=== PATIENT | female | born 1955 | race Caucasian/White ===

== ENCOUNTER 2018-11-19 00:35 | Outpatient (CLI) | payer BC, SELFPAY ==
--- NOTE | 2018-11-19 09:00 | DI.MAMMO_ITS ---
SYMPTOM/DIAGNOSIS: SCREENING, Z12.31 MAMMOGRAMS: Mammograms were interpreted according to the usual protocol including computer analysis with CAD system, tomosynthesis and C view imaging. The breasts are heterogeneously dense. Note is again made of a rim calcified nodule of the central portion of the right breast, unchanged or smaller in comparison with previous examinations including 12/2016. No new mass or clumped microcalcification is seen. CONCLUSION: No specific evidence of malignancy at this time. Routine screening examinations are suggested at yearly intervals due to the family history of breast carcinoma. Category 1. Breast density, category C. MQSA ASSESSMENT OF FINDINGS: Negative. Category 1. Patient will receive a letter notifying them of these results. Bi-RADS category C. The breasts are heterogeneously dense, which may obscure small masses.
== END 2018-11-19 00:55 ==
PROVIDERS: PCP Nurse Practitioner Family; Visit Provider Family Medicine
DX: Z12.31 Encounter for screening mammogram for malignant neoplasm of breast (principal); Z80.3 Family history of malignant neoplasm of breast
CPT/HCPCS: 77063; 77067

== ENCOUNTER 2019-08-20 02:10 | Outpatient (CLI) | payer BC, SELFPAY ==
--- NOTE | 2019-08-20 | DI.RAD_ITS ---
EXAM: XR LUMBAR SPINE COMPLETE INDICATION: LOW BACK PAIN M54.5. COMPARISON: CHEST 2 VIEWS PA,LAT from 12/19/2016 TECHNIQUE: 2D digital imaging was performed. FINDINGS: Vertebral bodies are well maintained in height. There is severe narrowing of the L5-S1 disc space. There is mild L5-S1 spondylolisthesis but no visible spondylolysis. There is no scoliosis. There ar e facet degenerative changes at L4-5 and L5-S1. There are small endplate osteophytes. Surgical clip s are noted in the right upper quadrant. IMPRESSION: Degenerative disc changes and mild listhesis at L5-S1. DATA REPOSITORY: RADIATION DOSE DELIVERED:
== END 2019-08-20 02:30 ==
PROVIDERS: PCP Nurse Practitioner Family; Visit Provider Family Medicine
DX: M54.5 Low back pain (principal); M51.37 Other intervertebral disc degeneration, lumbosacral region; M43.17 Spondylolisthesis, lumbosacral region
CPT/HCPCS: 72110

== ENCOUNTER 2019-08-20 08:45 | Outpatient (REF) | payer BC, SELFPAY ==
[2019-08-20 13:27] LABS: Abs Immature Grans 0.01 k/cumm (0.0-0.09); Absolute Basophil Count 0.04 k/cumm (0.0-0.2); Absolute Eosinophil Count 0.34 k/cumm (0.0-0.7); Absolute Lymphocyte Count 1.53 k/cumm (1.2-3.4); Absolute Monocyte Count 0.43 k/cumm (0.11-0.7); Absolute Neutrophil Count 2.94 k/cumm (1.2-6.7); Basophils % 0.8; Eosinophils % 6.4; HCT 44.6 % (36.0-46.0); HGB 14.9 g/dL (12.0-15.5); Immature Grans % 0.2 %; Lymphocytes % 28.9; Mean Corp. HGB Concentration 33.4 g/dL (32.0-36.0); Mean Corpuscular Hemoglobin 30.5 pg (27.0-33.0); Mean Corpuscular Volume 91.4 fL (80-95); Mean Platelet Volume 10.7 fL (8.0-11.0); Monocytes % 8.1; Neutrophils % 55.6; Platelet Count 222 x1000/uL (130-400); RBC 4.88 m/cumm (4.00-5.20); RBC Distribution Width 13.5 % (11.7-14.6); White Blood Cell Count 5.29 k/cumm (4.4-10.8)
[2019-08-20 13:33] LABS: ALT 30 U/L (14-59); AST 21 U/L (15-37); Albumin 4.1 g/dL (3.4-5.0); Alkaline Phosphatase 108 U/L (46-116); Anion Gap 10.7 mmol/L (3-11); BUN 27 mg/dL (7-18); Bilirubin, Total 0.6 mg/dL (0.2-1.0); CO2 26.3 mmol/L (21.0-32.0); CREATININE 0.71 mg/dL (0.55-1.02); Calcium 9.6 mg/dL (8.5-10.1); Calculated LDL 156 mg/dL (<100); Chloride 102 mmol/L (98-107); Cholesterol 259 mg/dL (<200); Glucose 91 mg/dL (74-106); HDL Cholesterol 72 mg/dL (40-60); Potassium 4.2 mmol/L (3.5-5.1); Sodium 139 mmol/L (136-145); Total Protein 7.2 g/dL (6.4-8.2); Triglyceride 155 mg/dL (<150)
== END 2019-08-20 09:05 ==
LOC: NCHCN 08:45
PROVIDERS: PCP Nurse Practitioner Family; Visit Provider Family Medicine
DX: Z00.00 Encounter for general adult medical examination without abnormal findings (principal); E78.5 Hyperlipidemia, unspecified
CPT/HCPCS: 80053; 80061; 85025

== ENCOUNTER 2020-03-26 00:14 | Outpatient (CLI) | payer MEDICARE, OTHER, SELFPAY ==
--- NOTE | 2020-03-26 13:50 | DI.DEXA_ITS ---
EXAM: XR DEXA BONE DENSITY W/WO ENOCH CLINICAL HISTORY: SCREENING FOR OSTEOPOROSIS, Z78.0 TECHNIQUE: COMPARISON: CR XR LUMBAR SPINE COMPLETE from 08/20/2019 FINDINGS: DEXA scan was performed according to the usual protocol. Please see the accompanying data sheets. Findings for left hip scanning are T-score -0.6 with left femoral neck T-score -1.5. Findings for lumbar spine scanning are T-score -1.8. Findings for left forearm scanning are T-score -1.9 IMPRESSION: Findings consistent with osteopenia according to the WHO criteria. The lateral vertebral scanogram s hows no evidence of a vertebral compression fracture. RADIATION DOSE DELIVERED: Total DLP
== END 2020-03-26 00:34 ==
PROVIDERS: PCP Nurse Practitioner Family; Visit Provider Family Medicine
DX: Z78.0 Asymptomatic menopausal state (principal); M85.89 Other specified disorders of bone density and structure, multiple sites
CPT/HCPCS: 77080

== ENCOUNTER 2020-04-21 03:26 | Outpatient (CLI) | payer MEDICARE, OTHER, SELFPAY ==
[2020-04-23 04:36] LABS: Vitamin D 25 Total 23.1 ng/ml (30-100)
== END 2020-04-21 03:46 ==
PROVIDERS: PCP Nurse Practitioner Family; Visit Provider Physical Medicine & Rehabilitation
DX: E55.9 Vitamin D deficiency, unspecified (principal); M89.9 Disorder of bone, unspecified
CPT/HCPCS: 36415; 82306

== ENCOUNTER 2020-06-25 02:43 | Outpatient (CLI) | payer MEDICARE, OTHER, SELFPAY ==
[2020-06-25 16:48] LABS: Vitamin D 25 Total 33.9 ng/ml (30-100)
== END 2020-06-25 03:03 ==
PROVIDERS: PCP Family Medicine; Visit Provider Physical Medicine & Rehabilitation
DX: E55.9 Vitamin D deficiency, unspecified (principal); M89.8X8 Other specified disorders of bone, other site
CPT/HCPCS: 36415; 82306

== ENCOUNTER 2021-08-02 01:39 | Outpatient (CLI) | payer MEDICARE, OTHER, SELFPAY ==
[2021-08-02 12:24] LABS: Abs Immature Grans 0.02 10^3/uL (0.0-0.06); Absolute Basophil Count 0.05 10^3/uL (0.0-0.2); Absolute Eosinophil Count 0.17 10^3/uL (0.0-0.7); Absolute Lymphocyte Count 1.58 10^3/uL (1.2-3.4); Absolute Monocyte Count 0.48 10^3/uL (0.1-0.8); Absolute Neutrophil Count 4.26 10^3/uL (1.2-6.7); Basophils % 0.8; Eosinophils % 2.6; HCT 42.7 % (36.0-46.0); HGB 13.8 g/dL (11.2-15.7); Immature Grans % 0.3; Lymphocytes % 24.1; MCH 29.3 pg (27.0-33.0); MCHC 32.3 % (32.0-36.0); MCV 90.7 fL (80-95); MPV 10.3 fL (8.0-11.0); Monocytes % 7.3; Neutrophils % 64.9; Nucleated RBC 0 %; Platelet Count 199 10^3/uL (130-400); RBC 4.71 10^6/uL (3.93-5.22); RDW 12.7 % (11.7-14.6); RDW-SD 41.9 fL; WBC 6.56 10^3/uL (4.4-10.8)
[2021-08-02 13:52] LABS: Iron 77 ug/dL (50-170); Total Iron Binding Capacity 263 ug/dL (250-450)
[2021-08-02 14:10] LABS: Vitamin D 25 Total 50.8 ng/mL (30-100)
[2021-08-02 14:15] LABS: ALT 28 U/L (14-59); AST 21 U/L (15-37); Albumin 3.9 g/dL (3.4-5.0); Alkaline Phosphatase 105 U/L (46-116); BUN 22 mg/dL (7-18); Bilirubin, Total 0.3 mg/dL (0.2-1.0); Calcium 9.3 mg/dL (8.5-10.1); Chloride 102 mmol/L (98-107); Estimated GFR 55.47 (mL/min/1.73m2); Glucose 101 mg/dL (74-106); Magnesium 2.3 mg/dL (1.8-2.4); Potassium 3.9 mmol/L (3.5-5.1); Sodium 140 mmol/L (136-145); TSH 2.06 uIU/mL (0.36-3.74); Total Protein 7.1 g/dL (6.4-8.2); Vitamin B12 558 pg/mL (193-986)
[2021-08-02 14:18] LABS: Folate > 20.0 ng/mL (8.6-20.0)
[2021-08-02 23:04] LABS: Ferritin 47 ng/mL (10-291)
== END 2021-08-02 01:40 | disposition home or self-care (01) ==
LOC: LBO 01:39
PROVIDERS: PCP Family Medicine; Visit Provider Physical Medicine & Rehabilitation
DX: R53.83 Other fatigue; E55.9 Vitamin D deficiency, unspecified; E53.8 Deficiency of other specified B group vitamins; E61.1 Iron deficiency; M89.8X8 Other specified disorders of bone, other site
CPT/HCPCS: 36415; 80053; 82306; 82607; 82728; 82746; 83540; 83550; 83735; 84443; 85025

== ENCOUNTER → 2022-01-17 00:51 | Outpatient (CLI) | payer MEDICARE, OTHER, SELFPAY ==
--- NOTE | 2022-01-17 08:41 | DI.MAMMO_ITS ---
Exam(s) MAMMO SCREENING EXAM: MAMMO SCREENING CLINICAL HISTORY: SCREENING, Z12.31 TECHNIQUE: Mammograms were interpreted according to the usual protocol including computer analysis w [facility] CAD system, tomosynthesis and C-view imaging. COMPARISON: FINDINGS: The breasts are heterogeneously dense. There are multiple benign-appearing fairly stable calcificati ons seen bilaterally. There is no new mass or clumped microcalcification of either breast. Comparis on prior examinations including November 2018 shows no worrisome change. IMPRESSION: No specific evidence of malignancy at this time. Routine screening examinations are suggested at yea rly intervals due to the family history of breast carcinoma. BI-RADS Category 1 - Negative Breast Density - Category C - Heterogeneously dense
== END ==
PROVIDERS: PCP Family Medicine; Visit Provider Family Medicine
DX: Z12.31 Encounter for screening mammogram for malignant neoplasm of breast (principal); Z80.3 Family history of malignant neoplasm of breast
CPT/HCPCS: 77063; 77067

== ENCOUNTER → 2022-02-25 00:20 | Outpatient (CLI) | payer MEDICARE, OTHER, SELFPAY ==
--- NOTE | 2022-02-25 | DI.CT_ITS ---
Exam(s) CT SINUS WO EXAM: CT SINUS WO CLINICAL HISTORY: CHRONIC SINUSITIS J32.0 CHRONIC FRONTAL SINUSITIS J32.1. Evaluate for sinusitis. TECHNIQUE: Imaging Protocol: Axial computed tomography images with coronal and sagittal reformatted images were created and reviewed. COMPARISON: No exams were available for comparison FINDINGS: AXIAL IMAGES: Frontal sinuses: Normally aerated. Ethmoid air cells: Normally aerated. Maxillary sinuses: There is a 2.2 x 2.1 cm mucous retention cyst or polyp in the floor of the left ma xillary sinus. There is a small mucous retention cyst or polyp in the right maxillary sinus. There is mild mucosal thickening in the floor the right maxillary sinus. Sphenoid sinus: Normally aerated. Ostiomeatal complexes: Patent. Osseous nasal septum: Midline. There is a small spur arising from the nasal septum and projecting int o the right nasal cavity. Visualized regional soft tissues: No acute findings. Orbits: Unremarkable. Bones: Unremarkable. Mastoid Air Cells: Normally aerated. IMPRESSION: 1. Mucous retention cysts or polyps in both maxillary sinuses. There is a 2.2 x 2.1 cm cyst/polyp in the left maxillary sinus. 2. Mild mucosal thickening in the right maxillary sinus. RADIATION DOSE DELIVERED: 165.2mGy.cm Total DLP 165.2mGy.cm Total DLP DATA REPOSITORY: All CT scans at this facility are submitted to the National Radiology Data Registry (NRDR) Dose Index Registry (DIR) with the [employer] (ACR). RADIATION OPTIMIZATION: All CT scans at this facility use at least one of these dose optimization te chniques: automated exposure control; mA and/or kV adjustment per patient size (includes targeted exa ms where dose is matched to clinical indication); or iterative reconstruction.
--- OUTSIDE RECORDS SUMMARY | 2022-02-25 00:22 | XMS_ITS | Encounter Summary ---
:1955 Author Organization [facility] Address [address] [place] [address] Care Team Providers Name Role Phone Igor Yu H MATTHEW Primary Care Provider [phone] Encounter Details Date Type Department Care Team Description 01/02/2017 Results Only [facility] Alondra Avitia, [facility] [phone] [facility] [facility] [place] [address] (Wo rk) Social History Tobacco Use Types Packs/Day Years Used Date Never Assessed Sex Assigned at Date Recorded Not on file documented as of this encounter Plan of Treatment Not on filedocumented as of this encounter Procedures Procedure Name Priority Date/Time Associated Diagnosis Comme nts PAP TEST- RESULT Routine 01/02/2017 0:00 EDT Resu lts for this ONLY procedure are i n the results section. documented in this encounter Results PAP TEST- RESULT ONLY (01/02/2017 0:00 EDT) Pathology Report: CYTOPATHOLOGY REPORT [facility] Reports generated via electronic interface contain rajesh ginal data; SERVICES however they are lacking the format of the original re port. Caution should be taken when reading/interpreting unfo rmatted reports. Name: ? GAVI MURRELL ? Accession #: ? [id number] ? : ? 1955 (Age: [age]) ??F ?Collect Date: ? 01/02/2017 ? Location: ? [facility] ? Receive Date: ? 01/04/20 17 ? Provider: ALONDRA FREEMAN NEWS REEL CAMERAMAN Copy to: YU SONG APRN ? Final Report SPECIMEN ADEQUACY ? Satisfactory for Evaluation - transformation zone component present GENERAL CATEGORIZATION ? Negative for Intraepithelial Lesion or Malignan cy ?? Last Menstrual Period: 2000 Specimen/Source: ??Pap Test, Cervix, ThinPrep Imaging System with manual evaluation Document reviewed and electronically signed by: ? Cheryl Ferrer, CT(ASCP) ? Report ??Date: 01/11/2017 14:43 HPV with Pap Test ? Date Ordered: ? 01/11/2017 ? Status: ?? Signed Out ?Date Complete: ? 01/12/2017 ? By: ??Sy stem Interface ? Date Reported: ? 01/12/2017 ? Interpretation RESULT: Negative for HPV. No E6 or E7 mRNA is detected from HPV types 16,18,31,3 3,35, 39,45,51,52,56,58,59,66, and 68 by safety deposit boxes custodian media vira amplification. Comments Document reviewed and electronically signed by: ? System Interface ? Report date: 01/12/2017 By the signature above, the attending physician certif ies that he/she has personally conducted a gross and/or microscopic examin ation of the described specimens and rendered or confirmed the above diagnosi s. End of Report Specimen Performing Organization Address City/State/ZIP Code Phon e Number [facility] [address] [place] [address] SERVICES documented in this encounter Visit Diagnoses Not on filedocumented in this encounter Care Teams Manager Marketing Communication Relationship Specialty Start Date End Date Yu Song APRN PCP - General 10/01/15 [address] [place] [address] documented as of this encounter
--- OUTSIDE RECORDS SUMMARY | 2022-02-25 00:22 | XMS_ITS | Encounter Summary ---
:1955 Author Organization [facility] [place] [address] Care Team Providers Name Role Phone Brittni Costa APRN Primary Care Provider [phone] Encounter Details Date Type Department Care Team Description 02/02/2012 Orders Only Radiology and Cardiology Apd Conversion, Results Results Provider, [address] [place] [phone] Social History Tobacco Use Types Packs/Day Years Used Date Never Assessed Sex Assigned at Date Recorded Not on file documented as of this encounter Plan of Treatment Not on filedocumented as of this encounter Procedures Procedure Name Priority Date/Time Associated Diagnosis Comme nts T3, FREE Routine 02/02/2012 1:06 PM Results f or this EDT procedure are i n the results section . TSH Routine 02/02/2012 1:06 PM Results f or this EDT procedure are i n the results section . T4, FREE Routine 02/02/2012 1:06 PM Results f or this EDT procedure are i n the results section . IRON Routine 02/02/2012 1:06 PM Results f or this EDT procedure are i n the results section . FERRITIN Routine 02/02/2012 1:06 PM Results f or this EDT procedure are i n the results section . documented in this encounter Results (ABNORMAL) T3, free (02/02/2012 1:06 PM EDT) P athologist Signature T3, Free 2.33 2.18 - ANITA MOTA DAY (External 3.98 pg/mL CONVERSION Lab) Specimen (Source) Anatomical Collection Method Collection Time Re ceived Time Location / / Volume Laterality 02/02/2012 1:06 PM EDT Results Provider Apd Conversion CHEMISTRY ORDERABLE S Performing Organization Address City/State/ZIP Code Phon e Number [facility] CONVERSION [address] [place], [place] [address] [facility] [place] CONVERSION (ABNORMAL) Ferritin (02/02/2012 1:06 PM EDT) P athologist Signature Ferritin 118 8 - 388 ANITA MOTA DAY (External ng/mL CONVERSION Lab) Specimen (Source) Anatomical Collection Method Collection Time Re ceived Time Location / / Volume Laterality 02/02/2012 1:06 PM EDT Results Provider Apd Conversion CHEMISTRY ORDERABLE S Performing Organization Address City/[facility]/ZIP Code Phon e Number [facility] CONVERSION [address] [place], [place] [address] ANITA [place] DAY CONVERSION (ABNORMAL) TSH (02/02/2012 1:06 PM EDT) P athologist Signature TSH 1.530 0.358 - ANITA MOTA DAY (External 3.74 CONVERSION Lab) uIU/mL Specimen (Source) Anatomical Collection Method Collection Time Re ceived Time Location / / Volume Laterality 02/02/2012 1:06 PM EDT Results Provider Apd Conversion CHEMISTRY ORDERABLE S Performing Organization Address City/State/ZIP Code Phon e Number [facility] CONVERSION [address] [place], [place] [address] [facility] [facility] [place] CONVERSION (ABNORMAL) T4, free (02/02/2012 1:06 PM EDT) P athologist Signature Free T4 1.1 0.76 - ANITA MOTA DAY (External 1.46 ng/dL CONVERSION Lab) Specimen (Source) Anatomical Collection Method Collection Time Re ceived Time Location / / Volume Laterality 02/02/2012 1:06 PM EDT Results Provider Apd Conversion CHEMISTRY ORDERABLE S Performing Organization Address City/[facility]/ZIP Code Phon e Number [facility] CONVERSION [address] [place], [place] [address] ANITA MOTA CONVERSION (ABNORMAL) Iron (02/02/2012 1:06 PM EDT) P athologist Signature Iron 80 50 - 170 ANITA HERNANDEZ (External ug/dL CONVERSION Lab) Specimen (Source) Anatomical Collection Method Collection Time Re ceived Time Location / / Volume Laterality 02/02/2012 1:06 PM EDT Results Provider Apd Conversion MD CHEMISTRY ORDERABLE S Performing Organization Address City/State/ZIP Code Phon e Number ANITAJENNIFER MOTA CONVERSION [address] [place], [place] [address] ANITAJENNIFER HERNANDEZ CONVERSION documented in this encounter Visit Diagnoses Not on filedocumented in this encounter Care Teams Microfilm Camera Operator Relationship Specialty Start Date End Date Brittni Costa APRN PCP - General Family Medicine 01/09/17 [address] [place] [address] documented as of this encounter
--- OUTSIDE RECORDS SUMMARY | 2022-02-25 00:22 | XMS_ITS | Encounter Summary ---
:1955 Author Organization [facility] Address [address] [place] [address] Care Team Providers Name Role Phone Unavailable Primary Care Provider Unavailable Encounter Details Date Type Department Care Team Description 09/17/2008 Before PRISM Converted [facility] - Melvi Davis, Visit (Maple) Maple conversion [facility]PRESSURIST [address] [place] [address] Social History Tobacco Use Types Packs/Day Years Used Date Never Assessed Sex Assigned at Date Recorded Not on file documented as of this encounter Plan of Treatment Not on filedocumented as of this encounter Procedures Procedure Name Priority Date/Time Associated Comments Diagnosis HPV DETECTION, HIGH Routine 09/17/2008 9:30 Resul ts for this RISK TYPES EDT procedure are i n the results section. CYTOPATHOLOGY Routine 09/17/2008 0:00 Results for this EDT procedure are i n the results section. documented in this encounter Results HUMAN PAPILLOMA VIRUS DNA TEST (09/17/2008 9:30 EDT) Specimen Description Cervix, ThinPrep [facility] vial Result Negative for HPV [facility] types 16, 18, 31, 33, 35, 39, 45, 51, 52, 56, 58, 59, and 68. Report Status Final [facility] 09/24/2008 Specimen Performing Organization Address City/State/ZIP Code Phon e Number [facility] [address] [place] [address] SERVICES [facility] [address] [place] [address] CYTOPATHOLOGY (09/17/2008 0:00 EDT) Pathology Report: CYTOPATHOLOGY REPORT ? [facility] ? LAB Reports generated via electr onic interface contain original data; ? however they are lacking the format of the original report. ? Caution should be taken when reading/interpreting unformatted reports. ? Name: ? IVON GAVI ? Accession #: ? [id number] ? : ? 1955 (Age: 53) ??F ?Collect Date: ? 09/17/2008 ? Location: ? [facility] ? Receive Date: ? 09/18/2008 ? Provider: ?AMAURI M RO WLETT ACUPRESSURIST ? Copy to: ? Specimen/Source: ? Pap Test, Cervix/Endocervix, ThinPrep Imaging System ? with manual evaluation ? Last Menstrual Period: ? 3/20/99 ? Previous Gynecologic Patholo gy: ? Yes: ? mild dyplasia - no re cords ? Treatment History: ? Cryotherapy: 2003 ? Other: ? HPVDX - HPV testing requeste d regardless of diagnosis on current ThinPrep Pap ?? test. ? SPECIMEN ADEQUACY ? Satisfactory for Eval uation ? - transformation zone compon ent present ? GENERAL CATEGORIZATION ? Negative for Intraepi thelial Lesion or Malignancy ? Document reviewed and electr onically signed by: ? Shira Garcia, CT(ASCP ) ? Report Date: ??/03/ 2009 14:31 ? End of Report ? Specimen Performing Organization Address City/State/ZIP Code Phon e Number [facility] [address] [place] [phone] SERVICES [facility] [address] [place] [address] documented in this encounter Visit Diagnoses Not on filedocumented in this encounter
--- OUTSIDE RECORDS SUMMARY | 2022-02-25 00:22 | XMS_ITS | Encounter Summary ---
:1955 Author Organization [facility] Address [facility] [place] [address] Care Team Providers Name Role Phone Ryan Dorenelan Seth APRN Primary Care Provider Encounter Details Date Type Department Care Team Description 01/17/2013 Hospital Encounter Mammography at [facility], DR ESTEF[facility] Sarah Huber MD [address] [place], [place] [id number] [place] [address] Social History Tobacco Use Types Packs/Day Years Used Date Never Assessed Sex Assigned at Date Recorded Not on file documented as of this encounter Plan of Treatment Not on filedocumented as of this encounter Procedures Procedure Name Priority Date/Time Associated Diagnosis Comme nts MAMMO SCREENING CAD Routine 01/17/2013 3:15 PM Re sults for this BILATERAL EDT procedure are i n the results section. documented in this encounter Results Mammo digital bilateral Screening with CAD (01/17/2013 3:15 PM EDT) Anatomical Region Laterality Modality Breast Bilateral Mammography Specimen (Source) Anatomical Collection Method Collection Time Re ceived Time Location / / Volume Laterality 01/17/2013 3:15 PM EDT Narrative 01/18/2013 10:48 AM EDT BILATERAL MAMMOGRAPHY ?? REASON FOR EXAM: Screening ?? TECHNIQUE: Cranio-caudal (CC) and mediol ateral oblique (MLO) views of both breasts obtained with direct digital cap ture. The exam was evaluated by CAD Version 8.3.17. ?? In addition to the routine 2D imaging th is exam was also performed with 3D tomographic imaging in MLO and CC projec tions. ?? FINDINGS: This is a benign mammogram (ACR Category 2). There has been no change in the fibroglandular pattern of the breasts. S pecifically, there has been no change in the appearance of the multiple bilate ral waxing and waning masses consistent with cysts throughout both breasts since the previous mammogram. There is no mammographic evidence of cancer. ? The breasts are extremely dense which gr eatly limits the mammographic sensitivity for the detection of maligna ncy. ? CONCLUSION ?? BENIGN mammogram (ACR Category 2). Routi ne screening mammography is recommended with the frequency dependent on the omaira ent's age and breast cancer risk factors. ?? [facility] has been [facility] to this patient [facility] Procedure Note Jennifer Hansen MD - 01/18/2013 BILATERAL MAMMOGRAPHY REASON FOR EXAM: Screening TECHNIQUE: Cranio-caudal (CC) and mediol ateral oblique (MLO) views of both breasts obtained with direct digital cap ture. The exam was evaluated by CAD Version 8.3.17. In addition to the routine 2D imaging is exam was also performed with 3D tomographic imaging in MLO and CC projec tions. FINDINGS: This is a benign mammogram (ACR Category 2). There has been no change in the fibroglandular pattern of the breasts. S pecifically, there has been no change in the appearance of the multiple bilate ral waxing and waning masses consistent with cysts throughout both breasts since the previous mammogram. There is no mammographic evidence of cancer. The breasts are extremely dense which gr eatly limits the mammographic sensitivity for the detection of maligna ncy. CONCLUSION BENIGN mammogram (ACR Category 2). Routi ne screening mammography is recommended with the frequency dependent on the omaira ent's age and breast cancer risk factors. A letter has been sent to this patient b [facility]. Dorene Davis APRN IMG MAMMO ORDERABLES documented in this encounter Visit Diagnoses Not on filedocumented in this encounter Care Teams Hand Stonecutter Relationship Specialty Start Date End Date Dorene Davis APRN PCP - General 05/11/10 01/02/17 [address] [place] [address] documented as of this encounter
--- OUTSIDE RECORDS SUMMARY | 2022-02-25 00:22 | XMS_ITS | Encounter Summary ---
:1955 Author Organization [facility] [place] [address] Care Team Providers Name Role Phone Igor Brittni Светлана CASTRO Primary Care Provider [phone] Encounter Details Date Type Department Care Team Description 02/02/2012 Orders Only Radiology and Cardiology Apd Conversion, Results Results Provider, [address] [place] [phone] Social History Tobacco Use Types Packs/Day Years Used Date Never Assessed Sex Assigned at Date Recorded Not on file documented as of this encounter Plan of Treatment Not on filedocumented as of this encounter Procedures Procedure Name Priority Date/Time Associated Diagnosis Comme nts IRON AND TIBC Routine 02/02/2012 1:06 PM Results for this EDT procedure are i n the results section . documented in this encounter Results (ABNORMAL) Iron and TIBC (02/02/2012 1:06 PM EDT) P athologist Signature TIBC 236 (ExtL) 250 - 450 ANITA MOTA DAY ug/dL CONVERSION Specimen (Source) Anatomical Collection Method Collection Time Re ceived Time Location / / Volume Laterality 02/02/2012 1:06 PM EDT Results Provider Apd Conversion CHEMISTRY ORDERABLE S Performing Organization Address City/State/ZIP Code Phon e Number [facility] CONVERSION [address] [place], [place] [address] ANITA MOTA DAY CONVERSION documented in this encounter Visit Diagnoses Not on filedocumented in this encounter Care Teams Tip Length Checker Relationship Specialty Start Date End Date Brittni Costa APRN PCP - General Family Medicine 01/09/17 [address] [place] [address] documented as of this encounter
--- OUTSIDE RECORDS SUMMARY | 2022-02-25 00:22 | XMS_ITS | Encounter Summary ---
:1955 Author Organization [facility] [place] [address] Care Team Providers Name Role Phone Brittni Costa APRN Primary Care Provider [phone] Encounter Details Date Type Department Care Team Description 03/20/2009 Orders Only Radiology and Cardiology Apd Conversion, Results Results Provider, [address] [place] [phone] Social History Tobacco Use Types Packs/Day Years Used Date Never Assessed Sex Assigned at Date Recorded Not on file documented as of this encounter Plan of Treatment Not on filedocumented as of this encounter Procedures Procedure Name Priority Date/Time Associated Diagnosis Comme nts SEDIMENTATION RATE Routine 03/20/2009 12:50 PM Re sults for this EDT procedure are i n the results section. documented in this encounter Results (ABNORMAL) Sedimentation rate (03/20/2009 12:50 PM EDT) P athologist Signature Sed Rate 4 0 - 30 ANITA MOTA DAY (External mm/hr CONVERSION Lab) Specimen (Source) Anatomical Collection Method Collection Time Re ceived Time Location / / Volume Laterality 03/20/2009 12:50 PM EDT Results Provider Apd Conversion HEMATOLOGY ORDERABL ES Performing Organization Address City/State/ZIP Code Phon e Number [facility] CONVERSION [address] [place], [place] [address] ANITA [facility] [address] CONVERSION documented in this encounter Visit Diagnoses Not on filedocumented in this encounter Care Teams Toll Repairer Central Office Relationship Specialty Start Date End Date Brittni Costa APRN PCP - General Family Medicine 01/09/17 [address] [place] [address] documented as of this encounter
--- OUTSIDE RECORDS SUMMARY | 2022-02-25 00:22 | XMS_ITS | Encounter Summary ---
:1955 Author Organization [facility] [place] [address] Care Team Providers Name Role Phone Dorene Davis APRN Primary Care Provider [phone] Encounter Details Date Type Department Care Team Description 02/01/2011 Hospital Encounter Mammography at [facility] [place] [address] Social History Tobacco Use Types Packs/Day Years Used Date Never Assessed Sex Assigned at Date Recorded Not on file documented as of this encounter Plan of Treatment Not on filedocumented as of this encounter Procedures Procedure Name Priority Date/Time Associated Comments Diagnosis MAMMO CALL BACK Routine 02/01/2011 2:19 PM Result s for this DIAGNOSTIC EXTRA EDT procedure a re in VIEW UNILATERAL the results section. documented in this encounter Results MAMMO CALL BACK DIAGNOSTIC EXTRA VIEW UNILATERAL (02/01/2011 2:19 PM EDT) Anatomical Region Laterality Modality Breast N/A Mammography Specimen (Source) Anatomical Collection Method Collection Time Re ceived Time Location / / Volume Laterality 02/01/2011 2:19 PM EDT Narrative 02/01/2011 5:06 PM EDT LEFT UNILATERAL DIAGNOSTIC MAMMOGRAM AND LEFT BREAST ULTRASOUND ON 02/01/11: ?? CLINICAL INDICATION: This is a callback from the screening exam of 01/21/11 for a well defined mass (possible cyst) in the upper, inner Left breast. ?? TECHNIQUE: Left ML and lateral extended CC views obtained with direct digital capture as well as a Left breast ultraso und. ?? FINDINGS: There are two new fairly large circumscribed masses, one in the upper, outer quadrant of the Left breast and one in the medial aspect of the Left breast. ? The breast is extremely dense. ?? Ultrasound identifies large correspondin g simple cysts measuring 40 x 12mm in the upper, outer quadrant at 0230, 5cm t o the nipple and a 38 x 17mm simple cyst medially at 1000, 4cm to the nipple corresponding to the mammographic findings. Other smaller additional simpl e cysts are identified. No solid masses are seen. ? The mammogram also shows stable scattere d calcifications throughout the breast. ?? CONCLUSION: ?? BENIGN Left unilateral diagnostic mammog radha and Left breast ultrasound (BIRADS Category 2) for multiple simple cysts. C ontinue with routine screening. Procedure Note Jennifer Hansen MD - 02/01/2011 LEFT UNILATERAL DIAGNOSTIC MAMMOGRAM AND LEFT BREAST ULTRASOUND ON 02/01/11: CLINICAL INDICATION: This is a callback from the screening exam of 01/21/11 for a well defined mass (possible cyst) in the upper, inner Left breast. TECHNIQUE: Left ML and lateral extended CC views obtained with direct digital capture as well as a Left breast ultraso und. FINDINGS: There are two new fairly large circumscribed masses, one in the upper, outer quadrant of the Left breast and one in the medial aspect of the Left breast. The breast is extremely dense. Ultrasound identifies large correspondin g simple cysts measuring 40 x 12mm in the upper, outer quadrant at 0230, 5cm t o the nipple and a 38 x 17mm simple cyst medially at 1000, 4cm to the nipple corresponding to the mammographic findings. Other smaller additional simpl e cysts are identified. No solid masses are seen. The mammogram also shows stable scattere d calcifications throughout the breast. CONCLUSION: BENIGN Left unilateral diagnostic mammog radha and Left breast ultrasound (BIRADS Category 2) for multiple simple cysts. C ontinue with routine screening. Dorene NG MAMMO ORDERABLES documented in this encounter Visit Diagnoses Not on filedocumented in this encounter Care Teams Manager Warehouse Relationship Specialty Start Date End Date Dorene Davis APRN PCP - General 05/11/10 01/02/17 [address] [place] [address] documented as of this encounter
--- OUTSIDE RECORDS SUMMARY | 2022-02-25 00:22 | XMS_ITS | Encounter Summary ---
:1955 Author Organization [facility] [place] [address] Care Team Providers Name Role Phone Brittni Costa APRN Primary Care Provider [phone] Encounter Details Date Type Department Care Team Description 03/22/2018 External Results Laboratory at Jewel Omalley MD Day [address] [place] [address] [place] [address] [phone] (Wo rk) Social History Tobacco Use Types Packs/Day Years Used Date Never Smoker Sex Assigned at Date Recorded Not on file documented as of this encounter Plan of Treatment Not on filedocumented as of this encounter Procedures Procedure Name Priority Date/Time Associated Comments Diagnosis APD LAB RESULT Routine 03/22/2018 12:10 Results f or this PM EDT procedure are i n the results section. APD LAB RESULT Routine 03/22/2018 12:10 Results f or this PM EDT procedure are i n the results section. APD LAB RESULT Routine 03/22/2018 12:10 Results f or this PM EDT procedure are i n the results section. HEMOGRAM Routine 03/22/2018 12:10 Results for this PM EDT procedure are i n the results section. IRON AND TIBC Routine 03/22/2018 12:10 Results fo r this PM EDT procedure are i n the results section. VITAMIN D, 25-HYDROXY Routine 03/22/2018 12:10 Re sults for this PM EDT procedure are i n the results section. VITAMIN D, 25-HYDROXY Routine 03/22/2018 12:10 Re sults for this PM EDT procedure are i n the results section. TSH Routine 03/22/2018 12:10 Results for this PM EDT procedure are i n the results section. TSH Routine 03/22/2018 12:10 Results for this PM EDT procedure are i n the results section. MAGNESIUM Routine 03/22/2018 12:10 Results for this PM EDT procedure are i n the results section. IRON Routine 03/22/2018 12:10 Results for this PM EDT procedure are i n the results section. FERRITIN Routine 03/22/2018 12:10 Results for this PM EDT procedure are i n the results section. FERRITIN Routine 03/22/2018 12:10 Results for this PM EDT procedure are i n the results section. VITAMIN B12 Routine 03/22/2018 12:10 Results for this PM EDT procedure are i n the results section. VITAMIN B12 Routine 03/22/2018 12:10 Results for this PM EDT procedure are i n the results section. COMPREHENSIVE Routine 03/22/2018 12:10 Results fo r this METABOLIC PANEL PM EDT procedure ar e in (NON-FASTING) the results section. documented in this encounter Results (ABNORMAL) Ferritin (03/22/2018 12:10 PM EDT) P athologist Signature Ferritin 108 8 - 388 [facility] (External ng/mL CONVERSION Lab) Specimen (Source) Anatomical Collection Method Collection Time Re ceived Time Location / / Volume Laterality 03/22/2018 12:10 PM EDT Jewel Marinelli MD CHEMISTRY ORDERABLES Performing Organization Address City/State/ZIP Code Phon e Number [facility] CONVERSION [address] [place], [place] [address] [facility] CONVERSION (ABNORMAL) TSH (03/22/2018 12:10 PM EDT) P athologist Signature TSH 1.890 0.358 - [facility] (External 3.740 CONVERSION Lab) uIU/mL Specimen (Source) Anatomical Collection Method Collection Time Re ceived Time Location / / Volume Laterality 03/22/2018 12:10 PM EDT Jewel Marinelli MD CHEMISTRY ORDERABLES Performing Organization Address City/[facility]/ZIP Code Phon e Number [facility] CONVERSION [address] [place], [place] [address] [facility] CONVERSION (ABNORMAL) Iron and TIBC (03/22/2018 12:10 PM EDT) P athologist Signature TIBC 307 250 - 450 [facility] (External ug/dL CONVERSION Lab) Specimen (Source) Anatomical Collection Method Collection Time Re ceived Time Location / / Volume Laterality 03/22/2018 12:10 PM EDT Jewel Marinelli MD CHEMISTRY ORDERABLES Performing Organization Address City/[facility]/ZIP Code Phon e Number [facility] CONVERSION [address] [place], [place] [address] [facility] CONVERSION (ABNORMAL) Iron (03/22/2018 12:10 PM EDT) athologist Signature Iron 75 50 - 170 [facility] (External ug/dL CONVERSION Lab) Specimen (Source) Anatomical Collection Method Collection Time Re ceived Time Location / / Volume Laterality 03/22/2018 12:10 PM EDT Jewel Marinelli MD CHEMISTRY ORDERABLES Performing Organization Address City/[facility]/ZIP Code Phon e Number [facility] CONVERSION [address] [place], [place] [address] [facility] CONVERSION (ABNORMAL) Vitamin B12 (03/22/2018 12:10 PM EDT) Analysis Performed At Patho logist Time Signature Vitamin B-12 527 232 - [facility] (External 1,245 CONVERSION Lab) pg/mL Specimen (Source) Anatomical Collection Method Collection Time Re ceived Time Location / / Volume Laterality 03/22/2018 12:10 PM EDT Jewel Marinelli MD CHEMISTRY ORDERABLES Performing Organization Address City/[facility]/ZIP Code Phon e Number [facility] CONVERSION [address] [place], [place] [address] [facility] CONVERSION (ABNORMAL) Vitamin D, 25-Hydroxy (03/22/2018 12:10 PM EDT) Patholo gist Method Time Signature 25-OH Vit D 25.1 30.0 - [facility] Total (ExtL) 100.0 CONVERSION ng/mL Specimen (Source) Anatomical Collection Method Collection Time Re ceived Time Location / / Volume Laterality 03/22/2018 12:10 PM EDT Jewel Marinelli MD CHEMISTRY ORDERABLES Performing Organization Address City/[facility]/ZIP Code Phon e Number [facility] CONVERSION [address] [place], [place] [address] [facility] CONVERSION (ABNORMAL) Vitamin B12 (03/22/2018 12:10 PM EDT) P athologist Signature Vitamin B-12 527 232 - 1245 [facility] (External pg/mL [facility]) Comment: Performed at: ??RN - [facility] [address] ??[id number] Footwear Sales Coordinator: Sheri Higuera MD, Phone: ??[phone] Specimen Anatomical Collection Method Collection Time Receive d Time (Source) Location / / Volume Laterality 03/22/2018 12:10 03/22/2018 PM EDT 12:31 PM EDT Jewel Marinelli MD CHEMISTRY ORDERABLES Performing Organization Address [facility] Phon e Number [facility] [address] [place], [place] [address] (ABNORMAL) Vitamin D, 25-Hydroxy (03/22/2018 12:10 PM EDT) Analysis Performed At Patho logist Time Signature 25-OH Vit D 25.1 30.0 - [facility] Total (ExtL) 100.0 [facility] ng/mL Comment: Vitamin D deficiency has been defined by the [place] [employer] and an Endocrine Society practi ce guideline as a level of serum 25-OH vitamin D less than 20 ng/mL (1,2). The Endocrine Society went on to further define vitamin D insufficiency as a level between 21 and 29 ng/mL (2). 1. IOM ([place] [employer]). 2010. Di etary reference ?? intakes for calcium and D. [place]: The ?? National Academies Press. 2. Allie MF, Kailyn NC, Deepthi lange BOONE, et al. ?? Evaluation, treatment, and preventio n of vitamin D ?? deficiency: an Endocrine Society cli nical practice ?? guideline. JCEM. 2010; 96(7):191 1-30. Performed at: ??RN - [facility] [place] ??[id number] Footwear Sales Coordinator: Sheri Higuera MD, Phone: ??[phone] Specimen Anatomical Collection Method Collection Time Receive d Time (Source) Location / / Volume Laterality 03/22/2018 12:10 03/22/2018 PM EDT 12:31 PM EDT Jewel Marinelli MD CHEMISTRY ORDERABLES Performing Organization Address City/State/ZIP Code Phon e Number [facility] [address] [place], [place] [address] (ABNORMAL) APD Lab Result (03/22/2018 12:10 PM EDT) [facility] gist Method Time Signature APD LAB RESULT FOLATE RBC [facility] ([facility]) Specimen Anatomical Collection Method Collection Time Receive d Time (Source) Location / / Volume Laterality 03/22/2018 12:10 03/22/2018 PM EDT 12:31 PM EDT Narrative [facility] - 03/24/2018 8:4 4 AM EDT Component ? Value ?RefRange ??Units ? Status Abn? FOLATE HEMOLYS ?52 2.3 ?Not ? ng/mL ? F ?Estab. ? HEMATOCRIT ? 43.5 ? 34.0-46.6 % ? F ? FOLATE RBC ? 1201 ? >498 ?ng/mL ? F ? Performed at: ??RN - [facility] Sarahy palomares ? [address] [place], [place] [id number] ? Footwear Sales Coordinator: Sheri Higuera MD, Phone: ??[phone] Jewel Marinelli MD POINT OF CARE TEST ORDERABLE S Performing Organization Address [facility] Phon e Number [facility] [address] [place], [place] [address] (ABNORMAL) APD Lab Result (03/22/2018 12:10 PM EDT) Analysis Performed At Patho logist Time Signature [facility]) Specimen Anatomical Collection Method Collection Time Receive d Time (Source) Location / / Volume Laterality 03/22/2018 12:10 03/22/2018 PM EDT 12:31 PM EDT Narrative [facility] - 03/22/2018 1:1 2 PM EDT Component ? Value ?RefRange ??Units ? Status Abn? TIBC ?307 ?250-450 ?? ug/dL ? F ? Jewel Marinelli MD POINT OF CARE TEST ORDERABLE S Performing Organization Address City/[facility] Phon e Number [facility] [address] [place], [place] [address] (ABNORMAL) Ferritin (03/22/2018 12:10 PM EDT) P athologist Signature Ferritin 108 8 - 388 [facility] (External ng/mL HOSPITAL Lab) Specimen Anatomical Collection Method Collection Time Receive d Time (Source) Location / / Volume Laterality 03/22/2018 12:10 03/22/2018 PM EDT 12:31 PM EDT Jewel Marinelli MD CHEMISTRY ORDERABLES Performing Organization Address [facility]/ZIP Code Phon e Number [facility] [address] [place], [place] [address] (ABNORMAL) TSH (03/22/2018 12:10 PM EDT) P athologist Signature TSH 1.890 0.358 - [facility] (External 3.740 HOSPITAL Lab) uIU/mL Specimen Anatomical Collection Method Collection Time Receive d Time (Source) Location / / Volume Laterality 03/22/2018 12:10 03/22/2018 PM EDT 12:31 PM EDT Jewel Marinelli MD CHEMISTRY ORDERABLES Performing Organization Address [facility] Phon e Luisana [facility] [address] [place] [address] (ABNORMAL) APD Lab Result (03/22/2018 12:10 PM EDT) Analysis Performed At Patho logist Time Signature APD LAB RESULT IRON [facility] (External [facility]) Specimen Anatomical Collection Method Collection Time Receive d Time (Source) Location / / Volume Laterality 03/22/2018 12:10 03/22/2018 PM EDT 12:31 PM EDT Narrative [facility] - 03/22/2018 1:0 8 PM EDT Component ? Value ?RefRange ??Units ? Status Abn? IRON ?75 ? 50-170 ?ug/dL ? F ? Jewel Marinelli MD POINT OF CARE TEST ORDERABLE S Performing Organization Address [facility] Phon e [facility] [address] [place] [address] (ABNORMAL) Magnesium (03/22/2018 12:10 PM EDT) P athologist Signature Magnesium 2.2 1.8 - 2.4 [facility] (External mg/dL HOSPITAL Lab) Specimen Anatomical Collection Method Collection Time Receive d Time (Source) Location / / Volume Laterality 03/22/2018 12:10 03/22/2018 PM EDT 12:31 PM EDT Jewel Marinelli MD CHEMISTRY ORDERABLES Performing Organization Address City/State/ZIP Code Phon e Number [facility] [address] [place], [place] [address] (ABNORMAL) Comprehensive metabolic panel (non-fasting) (03/22/2018 12:10 PM EDT) Analysis Performed At Patho logist Time Signature Sodium 135 135 - 145 [facility] (External mmol/L [facility]) Potassium 4.0 3.5 - 5.1 [facility] (External mmol/L [facility]) Chloride 102 98 - 107 [facility] (External mmol/L [facility]) CO2 24 21 - 32 [facility] (External mmol/L [facility] Lab) Anion Gap 13.0 9 - 16.5 [facility] (External mmol/L [facility]) Osmolality 262 261 - 280 [facility] (External mosm/kg [facility]) Glucose Lvl 93 74 - 106 [facility] (External mg/dL [facility]) BUN 16 7 - 18 [facility] (External mg/dL [facility]) Creatinine 0.96 0.55 - [facility] (External 1.02 mg/dL [facility]) BUN/Cre Ratio 16.7 7.0 - 25.0 [facility] (External [facility]) Estimated GFR 59 mL/min [facility] (External [facility] Lab) Comment: Estimated GFR is to assist you in evalua ting your patient and optimizing drug dosing. Per NKDBP, they classify normal renal function as any GFR > 60 ml/min/1.72m2; chronic kidney disea se when GFR <60, and renal failure when GFR <15. ??This calcu lation may not be valid for patients with atypical muscle mass (very lean or obese), acute renal failure, and in omaira ents with diabetic kidney disease. Calcium 9.7 (External Lab) 8.5 - 10.1 mg/dL [facility] Total Protein 8.0 (External Lab) 6.4 - 8.2 g/dL [facility] Albumin 4.3 (External Lab) 3.4 - 5.0 g/dL [facility] Globulin 3.7 (External Lab) 2.7 - 4.5 g/dL [facility] Alb/Globulin Ratio 1.2 (External Lab) 0.8 - 1.4 [facility] Alk Phos 82 (External Lab) 50 - 136 U/L [facility] ALT 37 (External Lab) 14 - 59 U/L [facility] AST 23 (External Lab) 15 - 37 U/L [facility] Total Bilirubin 0.4 (External Lab) 0.2 - 1.0 mg/dL [facility] Specimen Anatomical Collection Method Collection Time Receive d Time (Source) Location / / Volume Laterality 03/22/2018 12:10 03/22/2018 PM EDT 12:31 PM EDT Jewel Marinelli MD CHEMISTRY ORDERABLES Performing Organization Address City/State/ZIP Code Phon e Number [facility] [address] [place], [place] [address] (ABNORMAL) Hemogram (03/22/2018 12:10 PM EDT) [facility] gist Method Time Signature WBC 6.3 4.0 - [facility] (External 10.0 [facility]) 10^3/uL RBC 4.75 3.93 - [facility] (External 5.22 [facility]) 10^6/uL Hemoglobin 14.6 11.2 - [facility] (External 15.7 g/dL [facility]) Hematocrit 43.6 34.0 - [facility] (External 45.0 % [facility]) MCV 91.8 79.0 - [facility] (External 94.0 fL [facility]) MCH 30.7 26.6 - [facility] (External 32.2 pg [facility]) MCHC 33.5 32.0 - [facility] (External 36.5 g/dL [facility]) RDWCV 12.9 10.9 - [facility] (External 14.4 % [facility]) RDWSD 42 35 - 46 [facility] (External fL [facility]) Platelets 203 145 - 370 [facility] (External 10^3/uL [facility]) MPV 10.3 9.0 - [facility] (External 12.0 fL [facility]) Neutrophils % 60.5 34.0 - [facility] (External 71.0 % [facility]) Lymphocytes % 27.7 19.0 - [facility] (External 53.0 % [facility]) Monocytes % 7.2 4.0 - [facility] (External 13.0 % [facility]) Eosinophils % 4.1 0.0 - 7.0 [facility] (External % [facility]) Basophils % 0.5 0.0 - 2.0 [facility] (External % [facility]) Neutr Abs (ANC) 3.8 1.5 - 6.3 [facility] (External ABS # [facility]) Lymphocytes Abs 1.7 1.0 - 3.6 [facility] (External ABS # [facility]) Monocyte Abs 0.5 0.2 - 1.0 [facility] (External ABS # [facility]) Eosinophils Abs 0.3 0.0 - 0.5 [facility] (External ABS # [facility]) Basophils Abs 0.0 0.0 - 0.2 [facility] (External ABS # [facility]) Specimen Anatomical Collection Method Collection Time Receive d Time (Source) Location / / Volume Laterality 03/22/2018 12:10 03/22/2018 PM EDT 12:31 PM EDT Jewel Marinelli MD HEMATOLOGY ORDERABLES Performing Organization Address City/State/ZIP Code Phon e Number [facility] [address] [place] [address] documented in this encounter Visit Diagnoses Not on filedocumented in this encounter Care Teams Accordion Tuner Relationship Specialty Start Date End Date Brittni Costa APRN PCP - General Family Medicine 01/09/17 [address] [place] [address] documented as of this encounter
--- OUTSIDE RECORDS SUMMARY | 2022-02-25 00:22 | XMS_ITS | Encounter Summary ---
:1955 Author Organization [facility] Address [facility] [address] Care Team Providers Name Role Phone Dorene Davis APRN Primary Care Provider [phone] Encounter Details Date Type Department Care Team Description 02/01/2011 Hospital Encounter Mammography at [facility], [address] [facility] Sarah Huber MD [address] [place], [place] [address] [place] [address] Social History Tobacco Use Types Packs/Day Years Used Date Never Assessed Sex Assigned at Date Recorded Not on file documented as of this encounter Plan of Treatment Not on filedocumented as of this encounter Visit Diagnoses Not on filedocumented in this encounter Care Teams Hand Nailer Relationship Specialty Start Date End Date Dorene Davis APRN PCP - General 05/11/10 01/02/17 [address] [place], [place] [address] documented as of this encounter
--- OUTSIDE RECORDS SUMMARY | 2022-02-25 00:22 | XMS_ITS | Encounter Summary ---
:1955 Author Organization [facility] Address [address] [place] [address] Care Team Providers Name Role Phone Unavailable Primary Care Provider Unavailable Encounter Details Date Type Department Care Team Description 01/09/2013 Results Only [facility] Dorene Davis NP Laboratory Services - [address] [address] Social History Tobacco Use Types Packs/Day Years Used Date Never Assessed Sex Assigned at Date Recorded Not on file documented as of this encounter Plan of Treatment Not on filedocumented as of this encounter Procedures Procedure Name Priority Date/Time Associated Diagnosis Comme nts PAP TEST- RESULT Routine 01/09/2013 0:00 EDT Resu lts for this ONLY procedure are i n the results section. documented in this encounter Results PAP TEST- RESULT ONLY (01/09/2013 0:00 EDT) Pathology Report: CYTOPATHOLOGY REPORT [facility] Reports generated via electronic interface contain rajesh ginal data; however they are lacking the format of the original re port. Caution should be taken when reading/interpreting unfo rmatted reports. Name: ? GAVI MURRELL ? Accession #: ? [id number] ? : ? 1955 (Age: 57) ??F ?Collect Da te: ? 01/09/2013 ? Location: ? [facility] ? Receive Date: ? 013 ? Provider: DORENE DAVIS MANAGEMENT RECRUITER Copy to: ELIGIO LEVIN MD ? Final Report SPECIMEN ADEQUACY ? Satisfactory for Evaluation - transformation zone component present GENERAL CATEGORIZATION ? Negative for Intraepithelial Lesion or Malignan cy ?? Last Menstrual Period: 2010 Menstrual/ Status: ??Post Menopausal Specimen/Source: ??Pap Test, Cervix/Endocervix, ThinPr ep Imaging System with manual evaluation Document reviewed and electronically signed by: ? ARLEN Flores(ASCP) ? Report ??Date: 01/21/2013 13:58 HPV with Pap Test ? Date Ordered: ? 01/21/2013 ? Status: ?? Signed Out ?Date Complete: ? 01/22/2013 ? By: ??S ystem Interface ? Date Reported: ? 01/22/2013 ? Interpretation RESULT: Negative for HPV. No E6 or E7 mRNA is detected from HPV types 16,18,31,3 3,35, 39,45,51,52,56,58,59,66, and 68 by mold closer helper media vira amplification. Comments Document reviewed and electronically signed by: ? System Interface ? Report date: 01/22/2013 By the signature above, the attending physician certif ies that he/she has personally conducted a gross and/or microscopic examin ation of the described specimens and rendered or confirmed the above diagnosi s. End of Report Specimen Performing Organization Address City/State/ZIP Code Phon e Number [facility] [address] [place] [address] SERVICES [facility] [address] [place] [address] documented in this encounter Visit Diagnoses Not on filedocumented in this encounter
--- OUTSIDE RECORDS SUMMARY | 2022-02-25 00:22 | XMS_ITS | Encounter Summary ---
:1955 [place] [address] Care Team Providers Name Role Phone Dorene Davis APRN Primary Care Provider [phone] Encounter Details Date Type Department Care Team Description 01/24/2011 Orders Only [facility] [address] Lump or mass in breast [facility] (Primary Dx) [place] [address] Social History Tobacco Use Types Packs/Day Years Used Date Never Assessed Sex Assigned at Date Recorded Not on file documented as of this encounter Plan of Treatment Not on filedocumented as of this encounter Procedures Procedure Name Priority Date/Time Associated Diagnosis Comme nts MAMMO BREAST US Routine 02/01/2011 3:02 PM Lump or mass in Res ults for this LIMITED EDT breast procedure are i n the results section. documented in this encounter Results Mammo breast US unilateral bilateral (02/01/2011 3:02 PM EDT) Anatomical Region Laterality Modality Breast N/A Mammography Specimen (Source) Anatomical Collection Method Collection Time Re ceived Time Location / / Volume Laterality 02/01/2011 3:02 PM EDT Narrative 02/01/2011 5:06 PM EDT [...] simple cysts. C ontinue with routine screening. Ginny Medeiros MD IMG MAMMO ORDERABLES documented in this encounter Visit Diagnoses Diagnosis Lump or mass in breast - Primary documented in this encounter Care Teams Architectural Coating Finisher Relationship Specialty Start Date End Date Dorene Davis APRN PCP - General 05/11/10 01/02/17 [address] [place] [address] documented as of this encounter
--- OUTSIDE RECORDS SUMMARY | 2022-02-25 00:22 | XMS_ITS | Encounter Summary ---
:1955 Author Organization [facility] Address [facility] [place] [address] Care Team Providers Name Role Phone Brittni Costa APRN Primary Care Provider [phone] Reason for Visit Reason Comments Skin Check Consultation (Routine) - Closed Specialty Diagnoses / Procedures Referred By Contact Refer red To Contact Dermatology Diagnoses general skin check Telma Paige MD [facility] [address] [place] [address] [place] [address] Fax: Referral ID Status Reason Start Date Expiration Date Visits V isits Requested Authorized [id number] Closed Consult, 01/04/2017 01/04/2018 1 [facility] Encounter Details Date Type Department Care Team Description 01/09/2017 Office Visit Dermatology at [facility] S kin exam, screening for cancer; Indu VO Lentigines; [address] [facility] (seborrheic keratosis) [place] [address] [facility] [place], [place] [address] Social History Tobacco Use Types Packs/Day Years Used Date Never Smoker Sex Assigned at Date Recorded Not on file documented as of this encounter Progress Notes Barbara Mcclelland, DATA COLLECTION TECHNICIAN - 01/09/2017 4:30 PM EDT DERMATOLOGY NEW PATIENT CLINIC NOTE Date of service: 01/09/2017 Gavi Murrell : 1955 Provider: Janeth Lewis MD Chief Complaint Patient presents with ??? Skin Check ROS General: feeling well Skin: denies other skin complaints Breast feeding:no Trying to get :no PMH: Any chronic medical conditions: Lyme Disease SKIN HX: Actinic Keratosis HSV Hx and Details Yes carmax SH: Tobacco: no ETOH: yes ADR: No Known Allergies MEDS: Current Outpatient Prescriptions Medication Sig Dispense Refill ??? VENTOLIN HFA 90 mcg/actuation HFA Aerosol Inhaler No current facility-administered medications for this visit. HPI Gavi Murrell is a 61 y.o. year old female. New Patient to me. Patient is here for a full skin exam. Patient has a spot on her left buttocks x 6 months Examination General: Appears well, no distress Patient was asked to disrobe to the level of their comfort. A total body skin exam except for areas covered by underwear was performed. This includes examination of the skin of the face, ears, neck, chest, axillae, left and right upper and lower extremities, hands and feet, abdomen, and except the areas covered by underwear were not examined. Assessment and Plan: # Seborrheic Keratosis: Trunk and extremities, left buttock: Multiple 0.4-0.6cm brown papules with waxy, stuck-on appearance. Milia-like cysts, comedone-like openings and/or fissuring on dermoscopy. - Etiology discussed - Patient reassured lesions are benign in nature - Explained that these are hereditary, adult onset and acquired. # Lentigines: Trunk and extremities: 0.3-0.6cm light-brown evenly pigmented, well-demarcated macule - Discussed benign nature of lesion and provided reassurance - No treatment necessary at this time - Discussed importance of sun protection, sun avoidance strategies, protective clothing, and sunscreen. - Observe skin for change in color, size or character. Call if such occur Instructions: Follow up: 1 year for a full skin exam, sooner if needed Handout: None given I am documenting this encounter acting as the scribe for and in the presence of Dr.Lucas Barbara Mcclelland CMA and Dorinda Simon I performed the above scribed service and agree with the accuracy of the documentation in this encounter. Janeth Lewis MD Section of Dermatology [facility] documented in this encounter Plan of Treatment Not on filedocumented as of this encounter Visit Diagnoses Diagnosis Skin exam, screening for cancer Screening for malignant neoplasm of the skin Lentigines Other dyschromia SK (seborrheic keratosis) Other seborrheic keratosis documented in this encounter Care Teams Shirring Tender Relationship Specialty Start Date End Date Brittni Costa APRN PCP - General Family Medicine 01/09/17 [address] [place] [address] documented as of this encounter
--- OUTSIDE RECORDS SUMMARY | 2022-02-25 00:22 | XMS_ITS | Encounter Summary ---
:1955 Author Organization [facility] Address [facility] [place] [address] Care Team Providers Name Role Phone ChattanoogaDorene seymourmeaghan CASTRO Primary Care Provider [phone] Encounter Details Date Type Department Care Team Description 01/21/2011 Orders Only Radiology Dougie Marroquin MD [facility] D [facility] [place] [address] DIAGNOSTIC RADIOLOGY [phone] [place], [place] [address] (Wo rk) Social History Tobacco Use Types Packs/Day Years Used Date Never Assessed Sex Assigned at Date Recorded Not on file documented as of this encounter Plan of Treatment Not on filedocumented as of this encounter Procedures Procedure Name Priority Date/Time Associated Diagnosis Comme nts FILM LIBRARY Routine 01/21/2011 12:00 PM Results for this STORAGE ONLY MAMMO EDT procedure are in the results section. documented in this encounter Results FILM LIBRARY- STORAGE ONLY MAMMO (01/21/2011 12:00 PM EDT) Specimen (Source) Anatomical Collection Method Collection Time Re ceived Time Location / / Volume Laterality 01/21/2011 12:00 PM EDT Narrative [facility] - 10/23/2013 7:07 PM EDT This is a non-reportable exam. Procedure Note Maciej Ramirez - 10/23/2013Formatting of t his note might be different from the original. This is a non-reportable exam. Dougie Marroquin MD IMG FILM LIBRARY ORDERABLES Performing Organization Address City/State/ZIP Code [facility] e Number [facility] [address] [facility] [place] [address] documented in this encounter Visit Diagnoses Not on filedocumented in this encounter Care Teams Primer Powder Blender Wet Relationship Specialty Start Date End Date Dorene Davis APRN PCP - General 05/11/10 01/02/17 [address] [place] [address] documented as of this encounter
--- OUTSIDE RECORDS SUMMARY | 2022-02-25 00:22 | XMS_ITS | Encounter Summary ---
:1955 Author Organization [facility] Address [address] [place] [address] Care Team Providers Name Role Phone Brittni Costa APRN Primary Care Provider [phone] Encounter Details Date Type Department Care Team Description 01/13/2016 Hospital Encounter [facility]- Josiane Vance, Provider, [facility] 0 [facility] [phone] [place] [address] (Work) [phone] Social History Tobacco Use Types Packs/Day Years Used Date Never Assessed Sex Assigned at Date Recorded Not on file documented as of this encounter Discharge Disposition Disposition Code Departure Means Destination Home or Self [facility] documented in this encounter Plan of Treatment Not on filedocumented as of this encounter Visit Diagnoses Not on filedocumented in this encounter Care Teams Seismograph Shooter Relationship Specialty Start Date End Date Brittni Costa APRN PCP - General 10/01/15 [address] [place] [address] documented as of this encounter
--- OUTSIDE RECORDS SUMMARY | 2022-02-25 00:22 | XMS_ITS | Encounter Summary ---
:1955 Author Organization [facility] Address [address] [place] [address] Care Team Providers Name Role Phone Unavailable Primary Care Provider Unavailable Encounter Details Date Type Department Care Team Description 09/28/2015 Results Only [facility], OPEN DIE INSPECTOR [address] [place], [place] [address] (Wo rk) Social History Tobacco Use Types Packs/Day Years Used Date Never Assessed Sex Assigned at Date Recorded Not on file documented as of this encounter Plan of Treatment Not on filedocumented as of this encounter Procedures Procedure Name Priority Date/Time Associated Diagnosis Comme [facility] SURGICAL PATHOLOGY Routine 09/28/2015 10:36 Resul ts for this EDT procedure are i n the results section. documented in this encounter Results SURGICAL PATHOLOGY (09/28/2015 10:36 EDT) Pathology SURGICAL PATHOLOGY REPORT [facility] MEDICAL Report: Reports generated via electronic interface conta in original data; CENTER however they are lacking the format of the original re port. LABORATORY Caution should be taken when reading/interpretin g unformatted reports. SERVICES Name: ? GAVI MURRELL ? Accession #: ? [id number] ? : ? 1955 (Age: 6 0) ??F ? Collect Date: ? 09/28/2015 ? Location: ? [facility] ? Receive Date: ? 09/30/19 16 ? Provider: YU SONG OPEN DIE INSPECTOR Copy to: ? Final Pathologic Diagnosis: SKIN OF CHEST, RIGHT SIDE, PUNCH BIOPSY: - Actinic keratosis, inflamed. Microscopic Description: The stratum corneum is thickened by orthohyperkeratosi s with foci of parakeratosis. ??The epidermis is focally thicke violeta with elongate and bulbous rete ridges. ??The basal ker atinocytes show a variable degree of atypia including nuclear enlargement, dispola rity, and hyperchromasia. ??The dermis is marked by solar elastosis, vascular ectasia and a lymphohistiocy tic infiltrate. ??(Dr. Manzanares)/[facility] Document reviewed and electronically signed by: ALISA MANZANARES MD Report ??Date: 10/01/2015 14:52 By the signature above, the attending physician certif ies that he/she has personally conducted a gross and/or microscopic examin ation of the described specimens and rendered or confirmed the above diagnosi s. Specimen(s) Received: 3.0 mm punch biopsy R side chest Clinical History: Skin lesion R side chest 1 hand breadth sternum, prese nt 8 months, tender, flakes easily, cryotherapy not effective Gross Description: ? Received in formalin labelled with proper patient identification (initials A, J) and not otherwise spec ified is a punch biopsy of pink-red scaly skin (0.4 cm in diameter and 0.3 cm in thickness). ??The specimen is submitted intact in 1. Kofi Salgado 09/30/2015 11:01 AM End of Report Specimen Performing Organization Address City/State/ZIP Code Phon e Number [facility] CENTER LABORATORY [address] [place] [address] SERVICES documented in this encounter Visit Diagnoses Not on filedocumented in this encounter
--- OUTSIDE RECORDS SUMMARY | 2022-02-25 00:22 | XMS_ITS | Encounter Summary ---
:1955 Author Organization [facility] Address [address] [place] [address] Care Team Providers Name Role Phone Unavailable Primary Care Provider Unavailable Encounter Details Date Type Department Care Team Description 09/28/2015 Hospital Encounter [facility] - S Unknown, Pro Eliecer an MD [address] [facility] [phone] [place] [address] (Work) [phone] Social History Tobacco Use Types Packs/Day Years Used Date Never Assessed Sex Assigned at Date Recorded Not on file documented as of this encounter Discharge Disposition Disposition Code Departure Means Destination Home or Self Half-Way documented in this encounter Plan of Treatment Not on filedocumented as of this encounter Visit Diagnoses Not on filedocumented in this encounter
--- OUTSIDE RECORDS SUMMARY | 2022-02-25 00:22 | XMS_ITS | Encounter Summary ---
:1955 Author Organization [facility] [address] Care Team Providers Name Role Phone Brittni Costa APRN Primary Care Provider [phone] Encounter Details Date Type Department Care Team Description 03/20/2009 Orders Only Radiology and Cardiology Apd Conversion, Results Results Provider, [address] [place] [phone] Social History Tobacco Use Types Packs/Day Years Used Date Never Assessed Sex Assigned at Date Recorded Not on file documented as of this encounter Plan of Treatment Not on filedocumented as of this encounter Procedures Procedure Name Priority Date/Time Associated Diagnosis Comme nts RPR Routine 03/20/2009 12:50 PM Results for this EDT procedure are i n the results section . documented in this encounter Results (ABNORMAL) RPR (03/20/2009 12:50 PM EDT) [facility] gist Method Time Signature RPR NON REACTIVE NONREACTIVE ANITA MOTA DAY (External CONVERSION Lab) Specimen (Source) Anatomical Collection Method Collection Time Re ceived Time Location / / Volume Laterality 03/20/2009 12:50 PM EDT Results Provider Apd Conversion IMMUNOLOGY ORDERABL ES Performing Organization Address City/State/ZIP Code Phon e Number [facility]ITA [facility] CONVERSION [address] [place], [place] [address] [address]ITA [facility] DAY CONVERSION documented in this encounter Visit Diagnoses Not on filedocumented in this encounter Care Teams Eligibility Services Representative Relationship Specialty Start Date End Date Brittni Costa, TIRE WRAPPER PCP - General Family Medicine 01/09/17 [address] [place] [address] documented as of this encounter
--- OUTSIDE RECORDS SUMMARY | 2022-02-25 00:22 | XMS_ITS | Encounter Summary ---
:1955 Author Organization [facility] Address [address] [place] [address] Care Team Providers Name Role Phone Brittni Costa APRN Primary Care Provider [phone] Reason for Visit Reason Onset Date Comments Appointment Related 11/14/2019 Encounter Details Date Type Department Care Team Description 11/14/2019 Telephone [facility] - Sa braden Vargas NP Appointment Related [facility] [address] [place] [address] [place] [address] [place], [place] [address] [phone] Social History Tobacco Use Types Packs/Day Years Used Date Never Assessed Sex Assigned at Date Recorded Not on file documented as of this encounter Miscellaneous Notes Telephone Encounter - Jaja Hoffmann LPN - 11/14/2019 1651 EDT Called to schedule new pt visit, phone number not in service. documented in this encounter Plan of Treatment Not on filedocumented as of this encounter Visit Diagnoses Not on filedocumented in this encounter Care Teams Emergency Medicine Specialist Relationship Specialty Start Date End Date Brittni Costa APRN PCP - General 10/01/15 [address] [place] [phone] documented as of this encounter
--- OUTSIDE RECORDS SUMMARY | 2022-02-25 00:22 | XMS_ITS | Encounter Summary ---
:1955 Author Organization [facility] [address] Care Team Providers Name Role Phone Brittni Costa APRN Primary Care Provider [phone] Encounter Details Date Type Department Care Team Description 03/20/2009 Orders Only Radiology and Cardiology Apd Conversion, Results Results Provider, [address] [place] [phone] Social History Tobacco Use Types Packs/Day Years Used Date Never Assessed Sex Assigned at Date Recorded Not on file documented as of this encounter Plan of Treatment Not on filedocumented as of this encounter Procedures Procedure Name Priority Date/Time Associated Diagnosis Comme nts TSH Routine 03/20/2009 12:50 PM Results for this EDT procedure are i n the results section . FERRITIN Routine 03/20/2009 12:50 PM Results for this EDT procedure are i n the results section . VITAMIN B12 Routine 03/20/2009 12:50 PM Results for this EDT procedure are i n the results section . documented in this encounter Results (ABNORMAL) Vitamin B12 (03/20/2009 12:50 PM EDT) Analysis Performed At [facility] Time Signature Vitamin B-12 [phone] 948 ANITA MOTA (External PG/ML CONVERSION Lab) Specimen (Source) Anatomical Collection Method Collection Time Re ceived Time Location / / Volume Laterality 03/20/2009 12:50 PM EDT Results Provider Apd Conversion MD CHEMISTRY ORDERBROOKE S Performing Organization Address City/State/ZIP Code Phon e Number [facility]ITA [facility] CONVERSION [address] [place], [place] [address] ANITA MOTA DAY CONVERSION (ABNORMAL) Ferritin (03/20/2009 12:50 PM EDT) P athologist Signature Ferritin 14.7 11.0 - ANITA MOTA DAY (External 306.8 CONVERSION Lab) NG/ML Specimen (Source) Anatomical Collection Method Collection Time Re ceived Time Location / / Volume Laterality 03/20/2009 12:50 PM EDT Results Provider Apd Conversion CHEMISTRY ORDERBROOKE S Performing Organization Address City/[facility]/ZIP Code Phon e Number ANITA MOTA DAY CONVERSION [address] [place], [place] [address] ANITA MOTA DAY CONVERSION (ABNORMAL) TSH (03/20/2009 12:50 PM EDT) P athologist Signature TSH 1.29 0.34 - ANITA MOTA DAY (External 5.60 mIU/L CONVERSION Lab) Specimen (Source) Anatomical Collection Method Collection Time Re ceived Time Location / / Volume Laterality 03/20/2009 12:50 PM EDT Results Provider Apd Conversion MD ANTONIO WOODS S Performing Organization Address City/State/ZIP Code Phon e Number ANITA MOTA DAY CONVERSION [address] [place], [place] [address] ANITA MOTA DAY CONVERSION documented in this encounter Visit Diagnoses Not on filedocumented in this encounter Care Teams Nail Maker Relationship Specialty Start Date End Date Brittni Costa APRN PCP - General Family Medicine 01/09/17 [address] [place] [address] documented as of this encounter
--- OUTSIDE RECORDS SUMMARY | 2022-02-25 00:22 | XMS_ITS | Encounter Summary ---
:1955 Author Organization [facility] Address [facility] [place] [address] Care Team Providers Name Role Phone Ryan Dorenelan Seth APRN Primary Care Provider [phone] Encounter Details Date Type Department Care Team Description 01/21/2011 Hospital Encounter Mammography at [facility], DR [facility] Sarah Huber MD [address] [place], [place] [address] [place] [address] Social History Tobacco Use Types Packs/Day Years Used Date Never Assessed Sex Assigned at Date Recorded Not on file documented as of this encounter Plan of Treatment Not on filedocumented as of this encounter Procedures Procedure Name Priority Date/Time Associated Diagnosis Comme nts MAMMO SCREENING CAD Routine 01/21/2011 11:05 AM R esults for this BILATERAL EDT procedure are i n the results section. documented in this encounter Results MAMMO DIGITAL BILATERAL SCREENING WITH CAD (01/21/2011 11:05 AM EDT) Anatomical Region Laterality Modality Breast Bilateral Mammography Specimen (Source) Anatomical Collection Method Collection Time Re ceived Time Location / / Volume Laterality 01/21/2011 11:05 AM EDT Narrative 01/24/2011 4:35 PM EDT REASON FOR EXAM: Screening ?? TECHNIQUE: Cranio-caudal (CC) and mediol ateral oblique (MLO) views of both breasts obtained with direct digital cap ture. The exam was evaluated by CAD Version 8.3.17. ?? LEFT BREAST MAMMOGRAPHY ?? This is an indeterminate (ACR Category 0 ) mammogram of the LEFT breast. There is a well defined mass (possible cyst) i n the upper, inner Left breast, requiring additional imaging. ? RIGHT BREAST MAMMOGRAPHY ?? This is a negative mammogram (ACR Catego ry 1). There is a stable fibroglandular pattern without significant change as co mpared to prior studies. There is no mammographic evidence of cancer. ? The breasts are heterogeneously dense wh ich may limit mammographic sensitivity for the detection of malignancy. ? Scattered small, benign appearing calcif ications are present, of doubtful clinical significance. ? CONCLUSION ?? ASSESSMENT IS INCOMPLETE: Additional héctor ging recommended (ACR Category 0) of the Left breast. The Breast Imaging Cent er will contact the patient to schedule additional imaging. ?? The contralateral breast is NEGATIVE (AC R Category 1). Routine screening mammography is recommended of the Right breast with the frequency dependent on the patient's age and breast cancer risk factors. ? Please note: The markedly increased dens ity of these breasts reduces the reliability of mammography. For this zander son, the report of a ''negative'' mammogram should not preclude further ev aluation of any clinically suspicious finding. Procedure Note Ginny Medeiros MD - 01/24/2011Forma tting of this note might be different from the original. REASON FOR EXAM: Screening TECHNIQUE: Cranio-caudal (CC) and mediol ateral oblique (MLO) views of both breasts obtained with direct digital cap ture. The exam was evaluated by CAD Version 8.3.17. LEFT BREAST MAMMOGRAPHY This is an indeterminate (ACR Category 0 ) mammogram of the LEFT breast. There is a well defined mass (possible cyst) i n the upper, inner Left breast, requiring additional imaging. RIGHT BREAST MAMMOGRAPHY This is a negative mammogram (ACR Catego ry 1). There is a stable fibroglandular pattern without significant change as co mpared to prior studies. There is no mammographic evidence of cancer. The breasts are heterogeneously dense wh ich may limit mammographic sensitivity for the detection of malignancy. Scattered small, benign appearing calcif ications are present, of doubtful clinical significance. CONCLUSION ASSESSMENT IS INCOMPLETE: Additional héctor ging recommended (ACR Category 0) of the Left breast. The [facility] Imaging Cent er will contact the patient to schedule additional imaging. The contralateral breast is NEGATIVE (AC R Category 1). Routine screening mammography is recommended of the Right breast with the frequency dependent on the patient's age and breast cancer risk factors. Please note: The markedly increased dens ity of these breasts reduces the reliability of mammography. For this zander son, the report of a ''negative'' mammogram should not preclude further ev aluation of any clinically suspicious finding. Dorene Davis APRN IMG MAMMO ORDERABLES documented in this encounter Visit Diagnoses Not on filedocumented in this encounter Care Teams Optical Effects Layout Person Relationship Specialty Start Date End Date Dorene Davis APRN PCP - General 05/11/10 01/02/17 [address] [place] [address] documented as of this encounter
--- OUTSIDE RECORDS SUMMARY | 2022-02-25 00:22 | XMS_ITS | Clinical Summary ---
:1955 Author Organization [facility] Address [address] [place] [address] Care Team Providers Name Role Phone Brittni Costa HIDE TANNER Primary Care Provider [phone] Social History Tobacco Use Types Packs/Day Years Used Date Never Assessed Sex Assigned at Date Recorded Not on file Plan of Treatment Health Maintenance Due Date Last Done Comments Hepatitis C Screen 1955 COVID-19 Vaccine (1) 1960 Fall Risk Screening 2020 Care Teams Assistant Food Service Manager Relationship Specialty Start Date End Date Brittni Costa, HIDE TANNER PCP - General 10/01/15 [address] [place] [address]
--- OUTSIDE RECORDS SUMMARY | 2022-02-25 00:22 | XMS_ITS | Clinical Summary ---
:1955 Author Organization [facility] [place] [address] Care Team Providers Name Role Phone Brittni Costa APRN Primary Care Provider [phone] Allergies No known active allergies Medications Medication Sig Dispensed Refills Start Date End Date Status VENTOLIN HFA 90 mcg/actuation HFA 0 2016 Active Aerosol Inhaler Active Problems No known active problems Social History Tobacco Use Types Packs/Day Years Used Date Never Smoker Sex Assigned at Date Recorded Not on file Plan of Treatment Health Maintenance Due Date Last Done Comments Covid-19 Vaccine (#1) 1960 Hepatitis C Screening 1973 Tdap adult 1974 Tetanus vaccine 1974 HPV test 1985 PAP Smear 1985 Breast Cancer Share Decision Needed 1995 Colonoscopy 2000 Zoster vaccine (1 of 2) 2005 Advance Directive 2010 Breast Cancer screening 01/17/2015 01/17/2013, 01/21/2011 Bone Density Scan 2020 Pneumoccocal Vaccine: 65+ (1 - PCV) 2020 Influenza (Flu) vaccine (1 of - 02/17/2022 Influenza standard series) Care Teams [employer] Relationship Specialty Start Date End Date Brittni Costa APRN PCP - General Family Medicine 01/09/17 [address] [place] [address]
--- OUTSIDE RECORDS SUMMARY | 2022-02-25 00:22 | XMS_ITS | Encounter Summary ---
:1955 Author Organization [facility] Address [address] [place] [address] Care Team Providers Name Role Phone Brittni Costa APRN Primary Care Provider [phone] Encounter Details Date Type Department Care Team Description 09/26/2009 Historical Results [facility] - Mina Garcia, Only [facility] [address] [facility] [address] [place] [address] [place], [place] [phone] (Wo rk) Social History Tobacco Use Types Packs/Day Years Used Date Never Assessed Sex Assigned at Date Recorded Not on file documented as of this encounter Plan of Treatment Not on filedocumented as of this encounter Procedures Procedure Name Priority Date/Time Associated Diagnosis Comme [facility] SURGICAL PATHOLOGY Routine 09/26/2009 Results f or this procedure are i n the results section . documented in this encounter Results SURGICAL PATHOLOGY (09/26/2009) Specimen Narrative [facility] - 010 10:04 EDT Name: GAVI MURRELL ?: [birth year] ?Age/Sex: 64/F ?Unit#: [id number] ? Loc: SDS ? Status: PRE SDC ?? Reg Date: 10/09/09 ? Pt.Phone Number : ? Specimen: [id number] ? STA TUS: SOUT ?Spec Date:09/26/09 ? Physician Copies: ?Mina Garcia MD ?? Tissues: A ?? Gallbladder (GALLBLADDER) ?Telma Paige ? CPT: 99215 ?? Units: ??1 ?FINAL DIAGNOSIS ? Gallbladder, cholecystectomy; ? - Chronic cholecystitis. ? - Cholelithiasis. ? GROSS DESCRIPTION ? Received in formalin labeled with the patient's name and gallbladder is a ? cholecystectomy specimen measurin g 5.7 cm long with a neck diameter of 1 cm and ? body diameter up to 2.5 cm. ??The serosal surface is pale palomares-nuñez, smooth and ? glistening. ??No exudates or perf oration sites are found. ??Surgical clips are ? present at the proximal resection margin. ??No lymph node is identified. ??The ? gallbladder is fully opened to re lease approximately 3 cc of innumerable shiney ? black stones mixed with dark gree n bile. ??The size of the stones averages about ? 0.3 cm. ??The gallbladder wall sh ows mildly decreased compliance with an average ? thickness of 0.1 cm. ??The mucosa is dark green bile stained and atrophic ? appearing. ??No polyps or other m asses are found. ??The gallbladder outflow is ? noted to be tortuous. r.s. 1. ?? PREOP DX/CLINICAL HISTORY ?CHOLELITHIAS Signed ____(signature on file)____ Reva Griffiths M.D. 09/29/09 By the signature above, the attending ph ysician certifies that he/she has personally conducted a gross and/or microscopic exa mination of the described specimens and rendered or confirmed the above diagnosi s. Test Performed by [facility], [address] [place] [address] Rn Admissions: Reva Pina MD PHD Performing Organization Address City/State/[facility] Code Phon e Number [facility] [address] [place] [address] LAB documented in this encounter Visit Diagnoses Not on filedocumented in this encounter Care Teams Supervisor [employer] Relationship Specialty Start Date End Date Brittni Costa APRN PCP - General 10/01/15 26 KIKE AREVALO,[facility] [address] [place] [id number] documented as of this encounter
--- OUTSIDE RECORDS SUMMARY | 2022-02-25 00:22 | XMS_ITS | Encounter Summary ---
:1955 Author Organization [facility] Address [address] [place] [address] Care Team Providers Name Role Phone Unavailable Primary Care Provider Unavailable Encounter Details Date Type Department Care Team Description 04/03/2007 Results Only [facility] - Dorene Ponce NP conversion [address] [place] [address] Social History Tobacco Use Types Packs/Day Years Used Date Never Assessed Sex Assigned at Date Recorded Not on file documented as of this encounter Plan of Treatment Not on filedocumented as of this encounter Procedures Procedure Name Priority Date/Time Associated Diagnosis Comme nts CYTOPATHOLOGY Routine 04/03/2007 0:00 EDT Results for this procedure are i n the results section . documented in this encounter Results CYTOPATHOLOGY (04/03/2007 0:00 EDT) Pathology Report: CYTOPATHOLOGY REPORT [facility] Reports generated via electronic interface contain rajesh ginal data; however they are lacking the format of the original re port. Caution should be taken when reading/interpreting unfo rmatted reports. Name: ? GAVI MURRELL ? Accession #: ? [id number] : ? 1955 (Age: 52) ??F ?Collect Date: ? 03/19 Location: ? [facility] ? Receive Date : ? 04/04/2007 Provider: ?DORENE PEDRAZA [employer] SUPERVISOR Copy to: ? Specimen/Source: ? ThinPrep Pap Test, Cervix/Endocervix, processed on [employer] ThinPrep Imaging System, with manual evaluation Last Menstrual Period: ? 03/27/07 Other: ? Additional clinical information: Pt states she had Cry o done in 2002 HPVA - HPV testing requested if ASC-US on the current ThinPrep Pap test. ? SPECIMEN ADEQUACY ? Satisfactory for Evaluation - transformation zone component present GENERAL CATEGORIZATION ? Negative for Intraepithelial Lesion or Malignan cy ? Document reviewed and electronically signed by: ? ARLEN De La Cruz(ASCP)(IAC) ? Report Date: ??04/11/2007 09:25 End of Report Specimen Performing Organization Address City/State/ZIP Code Phon e Number [facility] [address] [place] [address] SERVICES [facility] [address] [place] [address] documented in this encounter Visit Diagnoses Not on filedocumented in this encounter
== END ==
PROVIDERS: PCP Family Medicine; Visit Provider Physician Assistant
DX: J32.0 Chronic maxillary sinusitis (principal); J32.1 Chronic frontal sinusitis; J33.0 Polyp of nasal cavity
CPT/HCPCS: 70486

== ENCOUNTER 2022-12-14 13:47 | Outpatient (REF) | payer MEDICARE, OTHER, SELFPAY ==
[2022-12-14 14:18] LABS: HCT 44.8 % (36.0-46.0); HGB 15.2 g/dL (11.2-15.7); MCH 30.6 pg (27.0-33.0); MCHC 33.9 % (32.0-36.0); MCV 90 fL (80-95); MPV 10.2 fL (8.0-11.0); Platelet Count 219 10^3/uL (130-400); RBC 4.97 10^6/uL (3.93-5.22); RDW 12.7 % (11.7-14.6); RDW-SD 42.3 fL
[2022-12-14 14:57] LABS: ALT 53 U/L (14-59); AST 36 U/L (15-37); Albumin 4.4 g/dL (3.4-5.0); Alkaline Phosphatase 82 U/L (46-116); Anion Gap 7.5 mmol/L (3-11); BUN 18 mg/dL (7-18); Bilirubin, Total 0.3 mg/dL (0.2-1.0); CO2 31.5 mmol/L (21.0-32.0); CREATININE 0.9 mg/dL (0.55-1.02); Calculated LDL 191 mg/dL (<100); Chloride 100 mmol/L (98-107); Cholesterol 302 mg/dL (<200); Estimated GFR 70.07 (mL/min/1.73m2); Glucose 94 mg/dL (74-106); HDL Cholesterol 64 mg/dL (40-60); Sodium 139 mmol/L (136-145); TSH (W/Ref FT4) 2.16 uIU/mL (0.36-3.74); Total Protein 8.3 g/dL (6.4-8.2); Triglyceride 236 mg/dL (<150)
[2022-12-14 15:48] LABS: Vitamin D 25 Total 53.3 ng/mL (30-100)
== END 2022-12-14 13:48 | disposition home or self-care (01) ==
LOC: NCHCN 13:47
PROVIDERS: PCP Family Medicine; Visit Provider Family Medicine
DX: E78.5 Hyperlipidemia, unspecified (principal); R00.2 Palpitations
CPT/HCPCS: 80053; 80061; 82306; 85027; 84443

== ENCOUNTER 2022-12-16 09:23 | Outpatient (CLI) | payer MEDICARE, OTHER, SELFPAY | END 2022-12-16 09:24 | disposition home or self-care (01) | PROVIDERS: PCP Family Medicine; Visit Provider Family Medicine | DX: R00.2 Palpitations (principal) | CPT/HCPCS: 93270 ==

== ENCOUNTER 2023-01-23 08:52 | Outpatient (CLI) | payer MEDICARE, OTHER, SELFPAY ==
--- NOTE | 2023-01-23 09:02 | W.CARDEVENT ---
Date of service: 01/23/23 Time of Service: 09:02 Cardiac Event Recorder Referring Provider:: Nneka Garcia Indications:: Palpitations Cardiac Event Note: This is a 30-day cardiac event monitor ordered for palpitations Predominant rhythm was sinus. Average heart rate was 75. Minimum was 52, maximum 157 There were rare isolated ventricular ectopic beats There were very rare isolated atrial premature beats. There was no atrial fibrillation, no SVT, no high-grade AV block, no pauses greater than 3 seconds Patient symptoms were reported which appeared to correlate to PVCs
== END 2023-01-23 08:53 | disposition home or self-care (01) ==
LOC: CARDOPNVT 08:52
PROVIDERS: PCP Family Medicine; Visit Provider Internal Medicine Cardiovascular Disease
DX: R00.2 Palpitations (principal)
CPT/HCPCS: 93272

== ENCOUNTER 2023-02-10 11:16 | Outpatient (REF) | payer MEDICARE, OTHER, SELFPAY ==
[2023-02-10 22:13] LABS: CRP, High Sensitivity <0.34 mg/L (See Note)
== END 2023-02-10 11:17 | disposition home or self-care (01) ==
LOC: NCHCN 11:16
PROVIDERS: PCP Family Medicine; Visit Provider Family Medicine
DX: E78.5 Hyperlipidemia, unspecified (principal)
CPT/HCPCS: 86141

== ENCOUNTER → 2023-05-01 00:17 | Outpatient (CLI) | payer MEDICARE, SELFPAY ==
--- NOTE | 2023-05-01 | DI.MAMMO_ITS ---
Exam(s) MAMMO SCREENING EXAM: MAMMO SCREENING CLINICAL HISTORY: SCREENING, Z12.31. TECHNIQUE: Bilateral full field digital CC and MLO mammographic images were obtained with 3D tomosyn thesis and utilizing computer aided detection (CAD). COMPARISON: Prior mammograms were reviewed. FINDINGS: The fibroglandular tissue pattern is again noted be moderately dense, this somewhat decreasing the se nsitivity of the mammogram for finding hidden underlying lesions. Scattered benign-appearing micro and macro calcifications are again noted as are benign-appearing per ipherally calcified oil cysts. There are no obvious new spiculated masses nor malignant appearing microcalcification groups. There is no significant architectural distortion nor skin thickening-retraction. IMPRESSION: No radiographic evidence of malignancy. BI-RADS Category 2 - Benign Findings Breast Density - Category C - Heterogeneously dense Breast density Category C or D implies that the patient has dense breast tissue. Dense breast tissue can make it harder to find cancer on a mammogram. Dense breast tissue is also associated with an incr eased risk of breast cancer. This information about the result of the mammogram report was provided to the patient to raise their awareness. Use this report when you speak with the patient about their risks for breast cancer, which includes their family history. At that time, you may recommend additional screening tests (Ultrasoun d or MRI) as these tests may add significant information. A negative radiographic report should not delay biopsy if a dominant or clinically suspicious mass is present. Up to ten percent of cancers are not identified on mammography. A negative report may reinforce clinical impression. Adenosis and dense breasts may obscure an underlying neoplasm. False positive reports average 6 to 10%. Patient will receive a letter notifying them of these results.
== END ==
PROVIDERS: PCP Family Medicine; Visit Provider Family Medicine
DX: Z12.31 Encounter for screening mammogram for malignant neoplasm of breast (principal)
CPT/HCPCS: 77063; 77067

== ENCOUNTER 2023-05-16 16:02 | Outpatient (REF) | payer MEDICARE, SELFPAY ==
[2023-05-16 15:00] LABS: ALT 214 U/L (14-59); AST 110 U/L (15-37); Albumin 4.5 g/dL (3.4-5.0); Alkaline Phosphatase 149 U/L (46-116); Bilirubin, Direct 0.1 mg/dL (0.0-0.2); Bilirubin, Total 0.4 mg/dL (0.2-1.0); Total Protein 7.7 g/dL (6.4-8.2)
[2023-05-16 15:14] LABS: Calculated LDL 66 mg/dL (<100); Cholesterol 157 mg/dL (<200); HDL Cholesterol 61 mg/dL (40-60); Triglyceride 152 mg/dL (<150)
[2023-05-16 22:09] LABS: CRP, High Sensitivity 0.67 mg/L (See Note)
== END 2023-05-16 16:03 | disposition home or self-care (01) ==
LOC: NCHCN 16:02
PROVIDERS: PCP Family Medicine; Visit Provider Family Medicine
DX: E78.5 Hyperlipidemia, unspecified (principal)
CPT/HCPCS: 80061; 80076; 86141

== ENCOUNTER 2023-07-19 11:23 | Outpatient (REF) | payer MEDICARE, SELFPAY ==
[2023-07-19 15:54] LABS: ALT 58 U/L (14-59); AST 31 U/L (15-37); Albumin 4.5 g/dL (3.4-5.0); Alkaline Phosphatase 81 U/L (46-116); Anion Gap 9.3 mmol/L (3-11); BUN 24 mg/dL (7-18); Bilirubin, Total 0.5 mg/dL (0.2-1.0); CO2 28.7 mmol/L (21.0-32.0); CREATININE 0.9 mg/dL (0.55-1.02); Calcium 10.2 mg/dL (8.5-10.1); Calculated LDL 182 mg/dL (<100); Chloride 102 mmol/L (98-107); Cholesterol 305 mg/dL (<200); Estimated GFR 69.64 (mL/min/1.73m2); Glucose 97 mg/dL (74-106); HDL Cholesterol 61 mg/dL (40-60); Potassium 4.1 mmol/L (3.5-5.1); Sodium 140 mmol/L (136-145); Total Protein 7.8 g/dL (6.4-8.2); Triglyceride 312 mg/dL (<150)
== END 2023-07-19 11:24 | disposition home or self-care (01) ==
LOC: NCHCN 11:23
PROVIDERS: PCP Family Medicine; Visit Provider Family Medicine
DX: E78.5 Hyperlipidemia, unspecified (principal)
CPT/HCPCS: 80053; 80061

== ENCOUNTER 2023-11-02 18:02 | Outpatient (REF) | payer MEDICARE, OTHER, SELFPAY ==
[2023-11-02 18:42] LABS: ALT 37 U/L (14-59); AST 26 U/L (15-37); Albumin 4.5 g/dL (3.4-5.0); Alkaline Phosphatase 89 U/L (46-116); Bilirubin, Total 0.7 mg/dL (0.2-1.0); Calculated LDL 69 mg/dL (<100); Cholesterol 144 mg/dL (<200); HDL Cholesterol 54 mg/dL (40-60); Total Protein 7.5 g/dL (6.4-8.2); Triglyceride 109 mg/dL (<150)
[2023-11-02 18:56] LABS: Bilirubin, Direct 0.2 mg/dL (0.0-0.2)
== END 2023-11-02 18:03 | disposition home or self-care (01) ==
LOC: NCHCN 18:02
PROVIDERS: PCP Family Medicine; Visit Provider Family Medicine
DX: E78.5 Hyperlipidemia, unspecified (principal)
CPT/HCPCS: 80061; 80076

== ENCOUNTER → 2023-11-23 02:17 | Outpatient (CLI) | payer MEDICARE, OTHER, SELFPAY ==
--- NOTE | 2023-11-23 | DI.DEXA_ITS ---
Exam(s) XR DEXA BONE DENSITY W/WO ENOCH EXAM: XR DEXA BONE DENSITY W/WO ENOCH CLINICAL HISTORY: OSTEOPENIA M85.88 BONE DENSITY DISORDER TECHNIQUE: Routine DEXA evaluation of the lumbar spine, hip, or forearm. COMPARISON: CR XR DEXA BONE DENSITY W/WO ENOCH from 03/26/2020 FINDINGS: Performed on a HoloKivivi unit. Lateral image: No compression fracture evident. Lumbar Spine total T-score: -2.2. Prior reading March 2020 was -1.8 Hip total T-score:-0.7. Prior March 2020 reading was -0.6 Independent reading at the level of the femoral neck yields T-score of -1.6 Forearm total T-score: -2.6 (which is in the osteoporosis range) IMPRESSION: Bone mineral density measures in the osteopenia range for the forearm and osteopenia for lumbar spine and hip. Fracture risk is moderate-high Note: Any spine fracture indicates 5x risk for subsequent spine fracture and 2x risk for subsequent h ip fracture. World Health Organization criteria for BMD interpretation classify patients: Normal...... T- Score at or above -1.0 Osteopenic... T- Score between -1.0 and -2.5 Osteoporosis... T-Score at or below -2.5
== END ==
PROVIDERS: PCP Family Medicine; Visit Provider Family Medicine
DX: M85.88 Other specified disorders of bone density and structure, other site (principal); Z13.820 Encounter for screening for osteoporosis
CPT/HCPCS: 77080

== ENCOUNTER 2025-01-15 20:59 | Outpatient (REF) | payer MEDICARE, OTHER, SELFPAY ==
[2025-01-15 21:29] LABS: ALT 37 U/L (14-59); AST 28 U/L (15-37); Albumin 4.5 g/dL (3.4-5.0); Alkaline Phosphatase 81 U/L (46-116); Anion Gap 7.3 mmol/L (3-11); BUN 23 mg/dL (7-18); Bilirubin, Total 0.4 mg/dL (0.2-1.0); CO2 29.7 mmol/L (21.0-32.0); Calcium 9.7 mg/dL (8.5-10.1); Calculated LDL 115 mg/dL (<100); Chloride 103 mmol/L (98-107); Cholesterol 229 mg/dL (<200); Estimated GFR 79.71 (mL/min/1.73m2); Glucose 100 mg/dL (74-106); HDL Cholesterol 54 mg/dL (>or=50); Potassium 4.3 mmol/L (3.5-5.1); Sodium 140 mmol/L (136-145); Total Protein 7.7 g/dL (6.4-8.2); Triglyceride 302 mg/dL (<150)
== END 2025-01-15 21:00 | disposition home or self-care (01) ==
LOC: NCHCN 20:59
PROVIDERS: PCP Family Medicine; Visit Provider Family Medicine
DX: Z13.220 Encounter for screening for lipoid disorders (principal); Z00.00 Encounter for general adult medical examination without abnormal findings
CPT/HCPCS: 80053; 80061

== ENCOUNTER 2025-01-28 15:42 | Outpatient (CLI) | payer MEDICARE, OTHER, SELFPAY ==
--- NOTE | 2025-01-28 | DI.MAMMO_ITS ---
Exam(s) MAMMO SCREENING EXAM: MAMMO SCREENING CLINICAL HISTORY: SCREENING,Z12.31 TECHNIQUE: Bilateral full field digital CC and MLO mammographic images were obtained with 3D tomosynthesis and utilizing computer aided detection (CAD). COMPARISON: Comparison is made with prior examinations. FINDINGS: Masses/Architectural Distortion: No suspicious masses or areas of architectural distortion are present. Microcalcifications: No suspicious pleomorphic-type are seen. There are benign type calcifications seen in the breasts bilaterally. There again seen oil cysts in the breast bilaterally. Skin Thickening/Nipple Retraction: None. IMPRESSION: 1. No significant interval change with no specific features of malignancy noted. 2. Unless there is more urgent need, screening mammography is recommended, as per [employer] guidelines. BI-RADS Category 2 - Benign Findings Breast Density - Category C - The breast are heterogeneously dense, which may obscure small masses. Breast density Category C or D implies that the patient has dense breast tissue. Dense breast tissue can make it harder to find cancer on a mammogram. Dense breast tissue is also associated with an increased risk of breast cancer. This information about the result of the mammogram report was provided to the patient to raise their awareness. Use this report when you speak with the patient about their risks for breast cancer, which includes their family history. At that time, you may recommend additional screening tests (Ultrasound or MRI) as these tests may add significant information. A negative radiographic report should not delay biopsy if a dominant or clinically suspicious mass is present. Up to ten percent of cancers are not identified on mammography. A negative report may reinforce clinical impression. Adenosis and dense breasts may obscure an underlying neoplasm. False positive reports average 6 to 10%. Patient will receive a letter notifying them of these results.
== END 2025-01-28 16:02 ==
PROVIDERS: PCP Family Medicine; Visit Provider Family Medicine
DX: Z12.31 Encounter for screening mammogram for malignant neoplasm of breast (principal); R92.333 Mammographic heterogeneous density, bilateral breasts
CPT/HCPCS: 77063; 77067